=== PATIENT | female | born 2000 | race Caucasian/White ===

== ENCOUNTER 2022-02-23 16:48 | Emergency (ER) | payer MEDICAID, SELFPAY ==
[2022-02-23 16:50] VITALS: BP 131/75; PULSE 96; RESP 16; TEMP 36.9; O2SAT 99
--- NOTE | 2022-02-23 17:25 | ECG_ITS ---
Measurements Intervals [place] Rate: 80 P: 45 DE: 147 QRS: 53 QRSD: 82 T: 47 QT: 324 QTc: 374 Interpretive Statements SINUS RHYTHM WITH SINUS ARRHYTHMIA NORMAL ECG Electronically Signed On 02-23-2022 20:13:23 CDT by Julian Lozano D.O.
--- NOTE | 2022-02-23 17:33 | ED.DIZZY ---
HPI - Dizziness General Chief Complaint: Dizziness Stated Complaint: two months of dizzy spells Time Seen by Provider: 02/23/22 17:04 History of Present Illness HPI Narrative: Patient is a 21 year old F-->M here for evaluation of dizziness over the past 2 months. Patient states the episodes are intermittent in nature, worse with ambulation and movement of the head, and they improve with rest. He presents today because the dizzy spell lasted longer and was associated with a headache, which was new for him. Headache is pulsatile and throbbing, located over his bilateral temples and unrelieved after Excedrin. Additionally reports mild nausea but no vomiting, and some tinnitus on the R ear. Patient has reportedly seen his PCP for this issue and has had basic workup that was unrevealing. Denies chest pain, shortness of breath, fevers, recent illness. Patient is on testosterone replacement therapy but this is no new medication for him. Related Data Home Medications Medication Instructions Recorded Confirmed bupropion HCl 150 mg 24 hr tablet, tablet PO 02/23/22 02/23/22 extended release escitalopram oxalate 20 mg tablet tablet 02/23/22 testosterone cypionate 200 mg/mL ea 02/23/22 intramuscular oil Allergies Allergy/AdvReac Type Severity Reaction Status Date / Time peanut Allergy Anaphylaxis Verified 02/23/22 17:36 Review of Systems Review of Systems: Gen.: Denies fevers or chills Eyes: Denies eye pain or visual change ENT: Reports tinnitus. denies congestion Respiratory: Denies shortness of breath or cough CV: Denies chest pain or palpitations GI: Denies abdominal pain nausea, emesis or diarrhea denies burning, urgency, frequency or hematuria Musculoskeletal: Denies back pain or muscle pain Neuro: Reports dizziness and headache. Denies numbness, tingling, weakness or focal weakness Skin: Denies rash Except as documented, all other systems reviewed and negative Exam Narrative: APPEARANCE: Well appearing, no pain in distress, well-nourished. Head: normocephalic and atraumatic. EYES: PERRLA/EOMI, conjunctivae clear NOSE: No nasal drainage EARS: External ear normal in appearance. Bilateral TMs clear. THROAT: Oropharynx is clear. Mucous membranes are moist. NECK: Supple. No adenopathy, no masses. RESPIRATORY: Airway patent, respirations nonlabored. Clear to auscultation bilaterally, no rales, rhonchi, wheezing. CARDIOVASCULAR: Regular rate and rhythm without murmurs, rubs, or gallops. ABDOMINAL: Normoactive bowel sounds. Soft, nontender, nondistended. No rebound tenderness or guarding. MUSCULOSKELETAL: Extremities are warm and well-perfused. Moves all extremities well. No edema. NEURO: Cranial nerves II through XII intact. Becomes dizzy with movement of head. Fatigable, horizontal nystagmus. No skew deviation. Corrective saccade present. Normal speech. No focal neurologic deficits. SKIN: Skin is warm and dry. No rashes. PSYCHIATRIC: Normal affect/mood. Course Vital Signs Vital signs: Vital Signs Temperature 98.5 F 02/23/22 16:50 Pulse Rate 96 02/23/22 16:50 Respiratory Rate 16 02/23/22 16:50 Blood Pressure 131/75 02/23/22 16:50 Pulse Oximetry 99 02/23/22 16:50 Oxygen Delivery Room Air 02/23/22 16:50 Temperature 98.5 F 02/23/22 16:50 Pulse Rate 77 02/23/22 19:38 Respiratory Rate 18 02/23/22 19:38 Blood Pressure 111/59 L 02/23/22 19:38 Pulse Oximetry 99 02/23/22 19:38 Oxygen Delivery Room Air 02/23/22 16:50 MDM - Dizziness MDM Narrative Medical decision making narrative: This patient presents with dizziness, most consistent with a peripheral cause, likely BPPV or Meniere's given tinnitus. No history of recent infection so doubt vestibular neuritis. No history of trauma. No red flag features for central vertigo to include gradual onset, vertical/bidirectional or non-fatigable nystagmus, focal neurologic findings on exam (including inability to ambulate, ataxia, d
[2022-02-23] MEDS: MECLIZINE HCL 25 MG TABLET PO (17:38)
[2022-02-23] MEDS: IBUPROFEN 600 MG TABLET PO (17:38)
[2022-02-23] MEDS: Please add drug allergy info to patient profile. XX (17:39)
[2022-02-23 17:51] LABS: Basophils Percent Auto 0.4 % (0.2-1.2); Eosinophils Absolute Auto 0.1 K/mm3 (0-0.3); Eosinophils Percent Auto 1.1 % (0-4.4); Hematocrit 45.1 % (37.0-47.0); Hemoglobin 15.7 g/dL (12.0-15.0); Immature Granulocyte Absolute 0.03 K/mm3 (0.00-0.031); Immature Granulocyte Percent A 0.4 % (0-0.5); Lymphocytes Absolute Auto 1.61 K/mm3 (0.9-3.2); Lymphocytes Percent Auto 18.9 % (18.3-44.2); Mean Corpuscular HGB Conc 34.8 g/dl (32-36); Mean Corpuscular Hemoglobin 27.9 pg (26-34); Mean Corpuscular Volume 80.2 fl (80-100); Mean Platelet Volume 9.6 fl (7.4-10.4); Monocytes Absolute Auto 0.8 K/mm3 (0.1-0.6); Monocytes Percent Auto 9.4 % (2.6-8.5); Neutrophils Percent Auto 69.8 % (45.5-73.1); Platelet Count Result 239 k/mm3 (150-375); Red Blood Count 5.62 M/mm3 (4.2-5.4); Red Cell Distribution Width 12.4 % (11.5-14.5); White Blood Count 8.5 K/mm3 (4.5-10.0)
[2022-02-23 18:26] LABS: D Dimer < 0.27 ug/mL (<0.48)
[2022-02-23 18:55] LABS: Alanine Aminotransferase 22 U/L (6-35); Albumin Level 4.9 g/dL (3.7-5.6); Alkaline Phosphatase 135 U/L (45-116); Anion Gap 8 mmol/L (8-16); Aspartate Amino Transferase 30 U/L (14-36); Bilirubin,Total 0.8 mg/dL (0.2-1.3); Blood Urea Nitrogen 11 mg/dL (8-21); Calcium 9.4 mg/dL (8.9-10.7); Carbon Dioxide 24 mmol/L (22-30); Chloride 105 mmol/L (98-107); Estimated CRCL calculation 100 ml/min; Estimated Glomerular Filt Rate > 60; Glucose 90 mg/dL (65-110); Potassium 4.2 mmol/L (3.4-5.0); Sodium 137 mmol/L (134-143)
[2022-02-23 19:38] VITALS: BP 111/59; PULSE 77; RESP 18; O2SAT 99
== END 2022-02-23 19:38 | disposition home or self-care (01) ==
PROVIDERS: Physician Assistant; Emergency Provider General Practice
DX: H81.10 Benign paroxysmal vertigo, unspecified ear (principal); Z79.890 Hormone replacement therapy
CPT/HCPCS: 36415; 80053; 85025; 85380; 93005; 99283; A9270